=== PATIENT | female | born 1935 | race Caucasian/White ===

== ENCOUNTER → 2016-08-02 | Outpatient (CLI) | payer MEDICARE, OTHER ==
[~2016-08-02] MED LIST: ASPI81TA2 PO; METO25TA6 PO; OMEP40CA52 PO; SIMV20TA6 PO
--- NOTE | 2016-08-04 11:07 | DI ---
INDICATION: ITS.REASON: R05; C90.00; R50.9 PROCEDURE: CHEST 2-VIEWS UPRIGHT (PA \T\ LAT) Encounter: Initial COMPARISON: None FINDINGS: The lungs are hyperinflated with findings suggesting COPD. No consolidative pneumonia or pneumothorax. Blunting of the costophrenic angles could be due to pleural thickening or scarring or trace effusions. Left IJ central venous port catheter in place with the tip in the superior right atrium. Chronic appearing rib deformities. Degenerative change in the shoulders. Impression: Findings of COPD without focal pneumonia or overt congestive failure. .
== END ==
LOC: IMA 18:01
PROVIDERS: ATTEND Internal Medicine
DX: R05 Cough (principal); C90.00 Multiple myeloma not having achieved remission; R50.9 Fever, unspecified; J44.9 Chronic obstructive pulmonary disease, unspecified

== ENCOUNTER 2017-01-17 11:00 | Inpatient (IN) ==
--- OUTSIDE RECORDS SUMMARY | 2017-01-17 13:57 | External Medical Summary ---
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 Care Team Providers Name Role Phone Peace Trevino Provider Role Unavailable Allergies, Adverse Reactions, Alerts Substance Reaction Event Type Sulfa Drugs Info Not Available Non Drug Allergy Pentothal *general Anesthetics* ; sodium Non Drug Allergy Problems Problem Type Condition ICD-9 Code Onset Dates Condition Status Problem Painful respiration 786.52 Inactive Problem Nonspecific abnormal findings on 793.3 Inactive radiological and other examination of biliary tract Problem Malignant neoplasm of corpus 182.0 Inactive uteri, except isthmus Problem Constipation 564.00 Active Problem Dilation of common bile duct 576.8 Active Problem Hematochezia 578.1 Active Problem Unspecified disease of pancreas 577.9 Inactive Problem Other specified disorders of 576.8 Inactive biliary tract Problem Weight loss 783.21 Active Problem Multiple myeloma 203.00 Active Assessment Multiple myeloma 203.00 Active Assessment Hematochezia 578.1 Active Assessment Dilation of common bile duct 576.8 Active Assessment Weight loss 783.21 Active Problem Abdominal pain, unspecified site 789.00 Inactive Assessment Constipation 564.00 Active Problem Personal history of malignant V10.42 Inactive neoplasm of other parts of uterus Medications Medication Code Code Instructions Start End Date Status Dosage System Date Revlimid [facility] 24206-05 not defined 20-00 Gabapentin [facility] 93565-14 100 MG Orally 1 capsule 92- qhs Simvastatin [facility] 50654-31 40 MG Oral 1 tab not defined 55-10 QD Zometa [facility] 79857-68 not defined 90-61 Nulytely with [facility] 98113-20 420 GM Orally as September 29, as directed Flavor Packs directed by [address] [place] [address]-18 20 MG Oral 1 cap not defined 50-01 [place] [address]-13 50-25 MG Oral not defined ochlorothiazide 24-01 1/2 tab am 1/2 tab pm daily Procedures Procedure Coding System Code Date Office Visit, Est Pt., Level 4 CPT-4 91469 September 29, 2014 Vital Signs Date/Time: September 29, 2014 Blood Pressure Systolic 132 mm Hg Weight 107 lbs Height 61 in BMI 20.22 Index Respiratory Rate 16 /min Cardiac Monitoring Heart Rate 80 /min Blood Pressure Diastolic 60 mm Hg Results No Known Results Summary Purpose [employer] Submission
--- OUTSIDE RECORDS SUMMARY | 2017-01-17 13:57 | External Medical Summary ---
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 Care Team Providers Name Role Phone Peace Trevino Provider Role Unavailable Allergies No Known Allergies Problems Problem Type Condition Code Onset Dates Condition Status Problem Other specified disorders of biliary 576.8 Inactive tract Problem Multiple myeloma 203.00 Active Problem Unspecified disease of pancreas 577.9 Inactive Problem Colon polyps 211.3 Active Problem Internal hemorrhoids 455.0 Active Problem Pancreatic cyst 577.2 Active Problem Dilation of common bile duct 576.8 Active Problem Weight loss 783.21 Active Problem Hematochezia 578.1 Active Problem Constipation 564.00 Active Problem Personal history of malignant V10.42 Inactive neoplasm of other parts of uterus Problem Painful respiration 786.52 Inactive Problem Malignant neoplasm of corpus uteri, 182.0 Inactive except isthmus Problem Abdominal pain, unspecified site 789.00 Inactive Problem Nonspecific abnormal findings on 793.3 Inactive radiological and other examination of biliary tract Medications No Known Medications Results No Known Results Summary Purpose [employer] Submission
--- OUTSIDE RECORDS SUMMARY | 2017-01-17 13:57 | External Medical Summary ---
[...] Medications Results No Known Results Summary Purpose [employer] Submission
--- OUTSIDE RECORDS SUMMARY | 2017-01-17 13:57 | External Medical Summary ---
[...] End Date Status Dosage System Date Revlimid [facility] 57307-86 not defined 20-00 Gabapentin [facility] 07086-91 100 MG Orally 1 capsule 92- qhs Simvastatin [facility] 44764-60 40 MG Oral 1 tab not defined 55-10 QD Zometa [facility] 44423-25 not defined 90-61 Nulytely with [facility] 04508-44 420 GM Orally as September 29, as directed Flavor Packs directed by 2015 [place] [address]-00 20 MG Oral 1 cap not defined 50-01 [place] [address]-79 50-25 MG Oral not defined ochlorothiazide 24-01 1/2 tab am 1/2 tab pm daily Procedures Procedure Coding System Code Date Office Visit, Est Pt., Level 4 CPT-4 49014 September 29, 2014 Vital Signs Date/Time: September 29, 2014 Blood Pressure Systolic 132 mm Hg Weight 107 lbs Height 61 in BMI 20.22 Index Respiratory Rate 16 /min Cardiac Monitoring Heart Rate 80 /min Blood Pressure Diastolic 60 mm Hg Results No Known Results Summary Purpose [employer] Submission
--- OUTSIDE RECORDS SUMMARY | 2017-01-17 13:57 | External Medical Summary | Referral Summary ---
:1935 Author Organization [facility] Address [address] [place] [address] Care Team Providers Name Role Phone No PCP, [facility] Primary Care Physician Encounter [facility] [id number] Date(s): 10/14/14 - 10/14/14 [facility] [address] [place] [address]- us Discharge Disposition: 01-Home or Self Care Attending Physician: Sol Arita MD Admitting Physician: Sol Arita MD Vital Signs No data available for this section Problem List No data available for this section Allergies, Adverse Reactions, Alerts No data available for this section Medications No data available for this section Results No data available for this section Immunizations No data available for this section Procedures No data available for this section Social History No data available for this section Assessment and Plan No data available for this section
--- OUTSIDE RECORDS SUMMARY | 2017-01-17 13:57 | External Medical Summary ---
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 Care Team Providers Name Role Phone Peace Trevino Provider Role Unavailable Allergies, Adverse Reactions, Alerts Substance Reaction Event Type Sulfa Drugs Info Not Available Non Drug Allergy Pentothal *general Anesthetics* ; sodium Non Drug Allergy Problems Problem Type Condition Code Onset Dates Condition Status Assessment Pancreatic cyst K86.2 Active Problem Pancreatic cyst K86.2 Active Medications Medication Code Code Instructions Start End Date Status Dosage System Date Gabapentin NDC 57742-02 100 MG Orally 1 capsule 92-01 qhs Omeprazole NDC 66305-10 20 MG Oral 1 cap not defined 50-01 QD Simvastatin NDC 21715-28 40 MG Oral 1 tab not defined 55-10 QD Metoprolol-[place] NDC 09067-23 50-25 MG Oral not defined chlorothiazide 24-01 1/2 tab am 1/2 tab pm daily Procedures Procedure Coding System Code Date Office Visit, Est Pt., Level 3 CPT-4 27556 November 16, 2015 Vital Signs Date/Time: November 16, 2015 Blood Pressure Systolic 128 mm Hg Weight 104 lbs Height 61 in BMI 19.65 Index Respiratory Rate 16 /min Cardiac Monitoring Heart Rate 72 /min Blood Pressure Diastolic 62 mm Hg Results No Known Results Summary Purpose [employer]Works Submission
--- OUTSIDE RECORDS SUMMARY | 2017-01-17 13:57 | External Medical Summary ---
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 Care Team Providers Name Role Phone Peace Trevino Provider Role Unavailable Allergies, Adverse Reactions, Alerts Substance Reaction Event Type Sulfa Drugs Info Not Available Non Drug Allergy Pentothal *general Anesthetics* ; sodium Non Drug Allergy Problems Problem Type Condition ICD-9 Code Onset Dates Condition Status Problem Other specified disorders of 576.8 Inactive biliary tract Problem Multiple myeloma 203.00 Active Problem Unspecified disease of pancreas 577.9 Inactive Problem Colon polyps 211.3 Active Problem Internal hemorrhoids 455.0 Active Problem Pancreatic cyst 577.2 Active Problem Dilation of common bile duct 576.8 Active Problem Weight loss 783.21 Active Problem Hematochezia 578.1 Active Problem Constipation 564.00 Active Assessment Internal hemorrhoids 455.0 Active Assessment Colon polyps 211.3 Active Problem Personal history of malignant V10.42 Inactive neoplasm of other parts of uterus Problem Painful respiration 786.52 Inactive Assessment Pancreatic cyst 577.2 Active Problem Malignant neoplasm of corpus 182.0 Inactive uteri, except isthmus Problem Abdominal pain, unspecified site 789.00 Inactive Problem Nonspecific abnormal findings on 793.3 Inactive radiological and other examination of biliary tract Medications Medication Code Code Instructions Start End Date Status Dosage System Date Revlimid [facility] 09765-90 not defined 20-00 Simvastatin [facility] 34982-10 40 MG Oral 1 tab not defined 55-10 QD Zometa [facility] 00280-98 not defined 90-61 Omeprazole [facility] 20684-58 20 MG Oral 1 cap not defined 50-01 QD Gabapentin [facility] 81385-31 100 MG Orally 1 capsule 92-01 qhs Metoprolol-[place]ard [facility] 62295-97 50-25 MG Oral not defined chlorothiazide 24-01 1/2 tab am 1/2 tab pm daily Procedures Procedure Coding System Code Date Office Visit, Est Pt., Level 3 CPT-4 14731 November 28, 2014 Vital Signs Date/Time: November 28, 2014 Blood Pressure Systolic 128 mm Hg Weight 109 lbs Height 61 in BMI 20.59 Index Respiratory Rate 16 /min Cardiac Monitoring Heart Rate 76 /min Blood Pressure Diastolic 64 mm Hg Results No Known Results Summary Purpose eClinicalWorks Submission
--- OUTSIDE RECORDS SUMMARY | 2017-01-17 13:57 | External Medical Summary ---
[...] uterus Problem Painful respiration 786.52 Inactive Assessment Cyst of pancreas K86.2 Active Problem Malignant neoplasm of corpus uteri, 182.0 Inactive except isthmus Problem Abdominal pain, unspecified site 789.00 Inactive Problem Nonspecific abnormal findings on 793.3 Inactive radiological and other examination of biliary tract Medications No Known Medications Results No Known Results Summary Purpose [facility] Submission
[2017-01-17] MEDS ORDERED: ONDANSETRON 4 MG/2 ML INJECTION IVP PRN (14:11)
[2017-01-17] MEDS ORDERED: METOCLOPRAMIDE 10mg/2ml INJECTION IVP PRN (14:58)
[2017-01-17] MEDS ORDERED: BISACODYL 10 MG SUPPOSITORY RECTALLY PRN (14:59)
--- NOTE | 2017-01-17 15:48 | History & Physical Report ---
<Radha Lui - Last Filed: 01/17/17 15:43> History of Present Illness Date: 01/17/17 Chief complaint: intractable nausea, vomiting and pain HPI: Yvette Delgadillo is an 81-year-old woman with a 4 year history of metastatic multiple myeloma. She was recently hospitalized at [facility], from through 01/17/17 for intractable pain, acute kidney injury, prerenal in nature, neutropenia, bandemia, anemia, hyponatremia, hypokalemia. Her oncologist is Dr. Henry Mcgovern and radiation oncologist, Dr. Moses Romero. Despite various chemotherapy and radiation treatments, she has seen little improvement. She has noticed increased pain in her legs and abdomen. A recent MRI showed progressive sinus tissue, masses, contusion leading to mass effect and impingement on the sciatic foramen, urinary bladder, and right ureter. The medical team recommended hospice,, and initially the patient and family wanted some time to make that decision, but her symptoms became significantly worse since about 10 January, and by the time of her discharge from [facility], she was set up with [facility]. She has been having nausea and vomiting, unable to take anything by mouth. She has had severe abdominal pain, which he describes like a tight band across her upper abdomen and radiating to her back. She hasn't had a bowel movement for about a week. The slps reports that they tried several bowel motivation, medications, and she did have very small results with an enema. However, with her severe nausea and vomiting, she is unable to tolerate MiraLAX or milk of mag. She states she has right upper thigh and groin pain. Her left leg has been markedly edematous for the last 4 weeks or so. She states that this was evaluated for DVT and was negative. She also has a very dry mouth, and is extremely weak. She does not feel like she be able to get up out of bed. She has become dizzy recently. She denies any shortness of breath or chest pain. Yvette denies any dysuria or decreased urine output. She states she has lost weight, though isn't quite sure how much. The slps stated she is starting to have some confusion as well. Her symptoms were still unable to be managed by oral medication, and she was admitted to [facility] for inpatient hospice. Review of Systems Comprehensive ROS: completed and no additional positive findings except those as stated - Constitutional Constitutional: Present: fatigue, weight loss. Absent: chills, fever(s), headache(s) - EENMT Nose: Absent: obstruction Mouth/Throat: Absent: sore throat - Cardiovascular Cardiovascular: Absent: chest pain Vascular: Present: see HPI, unilateral swelling - Respiratory Respiratory: Absent: cough, wheezing - Gastrointestinal Gastrointestinal: Present: as per HPI - Musculoskeletal Musculoskeletal: Present: as per HPI, back pain - Neurological Neurological: Present: confusion, weakness. Absent: numbness, paresthesias - Psychiatric Psychiatric: Absent: anxiety - Endocrine Endocrine: Absent: palpitations - Hematologic/Lymphatic Hematologic/Lymphatic: Present: easy bruising PFSH Metastatic multiple myeloma. Coronary artery disease. Hypertension. Dyslipidemia. History of uterine cancer. Chronic bronchitis. GERD. Osteopenia. Surgical History: Pelvic radiation in 2013. Cholecystectomy. Hysterectomy in 2013 due to cancer Family History: Not applicable to this admission. - Social History Smoking status: Former smoker (currently a nonsmoker) Substance use type: does not use Alcohol intake frequency: does not drink Medications Home Medications Medication Instructions Recorded Confirmed Type Albuterol Sulfate [Proair Hfa] 1 puff INH Q4H PRN 01/17/17 01/17/17 History Dexamethasone 2 mg PO BID 01/17/17 01/17/17 History Furosemide [Lasix] 1 tab PO BID 01/17/17 01/17/17 History Gabapentin 300 mg PO DAILY 01/17/17 01/17/17 History Hydrocodone/Acetaminophen 1 tab PO Q6H 01/17/17 01/17/17 History [Hydrocodon-Acetaminophen 5-325] Metoprolol Succinate (Xl) [Toprol 12.5 mg PO DAILY 01/17/17 01/17/17 History Xl] Morphine Sulfate *Sr* [Ms Contin] 1 tab PO Q12H PRN 01/17/17 01/17/17 History Omeprazole [Prilosec] 1 cap PO ACB 01/17/17 01/17/17 History Ondansetron Tab [Zofran Po] 8 mg PO Q8H PRN 01/17/17 01/17/17 History Simvastatin [Zocor] 20 mg PO HS 01/17/17 01/17/17 History Valacyclovir HCl [Valacyclovir] 500 mg PO DAILY 01/17/17 01/17/17 History Allergies Allergy/AdvReac Type Severity Reaction Status Date / Time Penicillins Allergy Unknown Verified 07/08/14 11:39 Sulfa (Sulfonamide Allergy Unknown Verified 07/08/14 11:39 Antibiotics) Exam Vital Signs: Temperature 97.0 F 01/17/17 14:02 Pulse Rate 83 01/17/17 14:02 Respiratory Rate 18 01/17/17 14:02 Blood Pressure 130/52 01/17/17 14:02 Pulse Oximetry 96 01/17/17 14:02 Height/Weight/BMI: Height 1.57 m Weight 46.2 kg Body Mass Index 18.6 - Constitutional Present: mild distress, thin, cachectic - Routine HEENT Exam Eye: Absent: scleral injection ENT: Present: mucous membranes dry, oropharynx clear - Routine Respiratory Exam Present: CTA bilaterally - Routine Cardiovascular Exam Present: RRR, S1, S2, murmur (2 to 3/6 systolic murmur) - Routine Abdominal Exam Present: soft, tenderness (diffuse tenderness), non tender. Absent: normoactive bowel sounds (hypoactive bowel sounds) - Routine Extremities Exam Present: edema (lymphedema to entire left lower extremity) - Routine Skin Exam Present: dry, pallor, warm - Routine Neurological Exam Present: alert, oriented X3, normal speech - Routine Psychiatric Exam Present: cooperative. Absent: normal affect (tired, flat affect) Assessment and Plan (1) Intractable abdominal pain Current visit: Yes Status: Acute (2) Intractable nausea and vomiting Current visit: Yes Status: Acute Resuscitation Status: Do Not Resuscitate Assessment and Plan: Assessment Intractable nausea, vomiting and abdominal pain secondary to pelvic masses and metastatic multiple myeloma. Constipation, possible obstruction secondary to pelvic masses Confusion/encephalopathy Coronary artery disease Hypertension. Dyslipidemia. History of uterine cancer. GERD. Plan Admit to inpatient status for symptomatic control of abdominal pain, nausea and constipation. This was discussed with the slps in detail. The goal is to convert any IV medication to oral so that she will be able to go home. She had previously been on Decadron 2 mg twice a day, but she has not received this for the last couple of days. Will restart this at 2 mg daily and begin to taper down. She has not been able to tolerate any oral medications for constipation, so we will have suppositories available if needed. The patient, however does not think that suppositories will help significantly. [facility] will be available. Labwork is not indicated. CODE STATUS: DO NOT RESUSCITATE. She plans to go home with her son, who will be her primary caregiver. [facility] were reviewed. -Labs done on 01/14/17 showed Creatinine 1.9, sodium 136, potassium 3.7, the 28th. White count was 2.5, hemoglobin 8.2, platelets 139. -Her weight on 01/15/17 was 106 pounds -Chest x-ray showed scattered bilateral parenchymal and extra parenchymal/ pleural nodules, small left pleural effusion with underlying airspace opacity, multiple bilateral lucencies in the shoulder girdle. -Renal sono on 01/14/17 showed mild right-sided hydronephrosis and hydroureter, debris within urinary bladder. -Left lower extremity venous Doppler on 01/14/17: No evidence of DVT. Discussed with Dr. Padilla. Hospital Course Summary Disclaimer: The visit summary below is not to be considered part of the above Progress Note. Hospital Course: 01/17/17 Assessment Intractable nausea, vomiting and abdominal pain secondary to pelvic masses and metastatic multiple myeloma. Constipation, possible obstruction secondary to pelvic masses Confusion/encephalopathy Coronary artery disease Hypertension. Dyslipidemia. History of uterine cancer. GERD. Plan Admit to inpatient status for symptomatic control of abdominal pain, nausea and constipation. This was discussed with the slps in detail. The goal is to convert any IV medication to oral so that she will be able to go home. She had previously been on Decadron 2 mg twice a day, but she has not received this for the last couple of days. Will restart this at 2 mg daily and begin to taper down. She has not been able to tolerate any oral medications for constipation, so we will have suppositories available if needed. The patient, however does not think that suppositories will help significantly. [facility] will be available. Labwork is not indicated. CODE STATUS: DO NOT RESUSCITATE. She plans to go home with her son, who will be her primary caregiver. [facility] records were reviewed. -Labs done on 01/14/17 showed Creatinine 1.9, sodium 136, potassium 3.7, the 28th. White count was 2.5, hemoglobin 8.2, platelets 139. -Her weight on 01/15/17 was 106 pounds -Chest x-ray showed scattered bilateral parenchymal and extra parenchymal/ pleural nodules, small left pleural effusion with underlying airspace opacity, multiple bilateral lucencies in the shoulder girdle. -Renal sono on 01/14/17 showed mild right-sided hydronephrosis and hydroureter, debris within urinary bladder. -Left lower extremity venous Doppler on 01/14/17: No evidence of DVT. Discussed with Dr. Padilla. <Varsha Padilla - Last Filed: 01/17/17 18:07> History of Present Illness Date: 01/17/17 Exam Vital Signs: Temperature 97.0 F 01/17/17 14:02 Pulse Rate 83 01/17/17 14:02 Respiratory Rate 18 01/17/17 14:02 Blood Pressure 130/52 01/17/17 14:02 Pulse Oximetry 96 01/17/17 14:02 Height/Weight/BMI: Height 1.57 m Weight 46.2 kg Body Mass Index 18.6 Assessment and Plan (1) Intractable abdominal pain Current visit: Yes Status: Acute (2) Intractable nausea and vomiting Current visit: Yes Status: Acute Assessment and Plan: I have independently evaluated and examined this patient. I reviewed the chart, the patient's history, and the [employer]/PA's documented findings as above. We discussed and formulated the assessment and plan as above with additions as below: Patient transferred from [place] for inpatient hospice pending stabilization of symptoms and anticipated home hospice care. Patient was somnolent when seen and her was at the bedside indicating that pain medications make her drowsy. Constipation is the 's primary concern and the patient indicated reluctance to try suppositories. Cachectic female, drowsy, NAD at time of visit Respirations nonlabored but diminished airflow, breath sounds clear posteriorly Low-grade tachycardia, abdomen soft No edema Discussed with [facility] nurse, plans as noted. We'll add MiraLAX 34 g daily to assist in constipation management if able to take oral. Oncology-Dr. Mcgovern. Hospital Course Summary Disclaimer: The visit summary below is not to be considered part of the above Progress Note.
[2017-01-17] MEDS: DEXAMETHASONE 1 MG TABLET PO SCH (16:40)
[2017-01-17] MEDS: HYDROCODONE/APAP 10 MG/325 MG TABLET PO PRN (17:17)
[2017-01-17] MEDS: ONDANSETRON 4 MG/2 ML INJECTION IVP PRN (20:04)
[2017-01-17] MEDS: SENNA + DOCUSATE TABLET PO SCH (20:04)
[2017-01-17] MEDS: LORazepam 0.5 MG TABLET PO SCH (20:05)
[2017-01-18] MEDS: MORPHINE SULFATE 10 MG SYRINGE IV PRN ×3 (03:16→19:20)
[2017-01-18] MEDS: ONDANSETRON 4 MG/2 ML INJECTION IVP PRN ×2 (04:54→12:25)
[2017-01-18] MEDS: HYDROCODONE/APAP 10 MG/325 MG TABLET PO PRN (04:55)
[2017-01-18] MEDS ORDERED: PANTOPRAZOLE 20 MG TABLET PO SCH (07:00)
[2017-01-18] MEDS ORDERED: POLYETHYL GLYCOL 3350 17gm PACKET PO SCH (09:00)
[2017-01-18] MEDS ORDERED: FLEET PHOSPHO - SODA ENEMA 133ml PR PRN (10:00)
[2017-01-18] MEDS: DEXAMETHASONE 4 MG/ML INJECTION IVP SCH (10:26)
[2017-01-18] MEDS: DEXAMETHASONE 1 MG TABLET PO SCH (10:48)
[2017-01-18] MEDS: LORazepam 0.5 MG TABLET PO SCH (10:48)
[2017-01-18] MEDS: SENNA + DOCUSATE TABLET PO SCH (10:49)
[2017-01-18] MEDS: MORPHINE SULFATE 10mg/0.5ml ORAL LIQ PO SCH ×4 (12:22→21:17)
--- NOTE | 2017-01-18 12:35 | Progress Note ---
Subjective: Mrs. Delgadillo has been minimally responsive overnight and is not taking oral medications or any liquids/nutrition. Her is at bedside and indicates that she had a restful night. [facility] nursing requested several changes in medications to accommodate non-oral medication administration. does not believe she's had a bowel movement but did not indicate abdominal distress. She' s had no vomiting. Patient opened her eyes briefly and responded no when asked if she had pain or nausea and drifted back to sleep immediately. Objective Vital signs: Temperature 98.1 F 01/18/17 08:00 Pulse Rate 80 01/18/17 08:00 Respiratory Rate 14 01/18/17 08:00 Blood Pressure 122/47 01/18/17 08:00 Pulse Oximetry 94 01/18/17 08:00 NAD, drowsy Respirations nonlabored, diminished inspiratory effort, clear anteriorly Regular rhythm Abdomen moderately distended, soft, nontender +2 edema LLE, +1 RLE Height/Weight/BMI: Height 1.57 m Weight 47.5 kg Body Mass Index 18.6 Assessment and Plan (1) Intractable abdominal pain Current visit: Yes Status: Acute (2) Intractable nausea and vomiting Current visit: Yes Status: Acute (3) Multiple myeloma Problem details: Metastatic Current visit: Yes Status: Acute Resuscitation Status: Do Not Resuscitate Assessment and Plan: Assessment Intractable nausea, vomiting and abdominal pain secondary to pelvic masses and metastatic multiple myeloma. Constipation, possible obstruction secondary to pelvic masses Confusion/encephalopathy Coronary artery disease Hypertension. Dyslipidemia. History of uterine cancer. GERD. Plan: Appears comfortable at present. Oral medications discontinued. Roxanol initiated at 10 mg every 4 hours and 10 mg every 2 hours as needed. Ativan and Decadron IV with prior dosing. Suppositories/fleets enema if needed for constipation. Discussed with [facility] nurse, , and daughter. Sepsis Assessment - Evaluation Sepsis screening result: No Definite Risk Hospital Course Summary Disclaimer: The visit summary below is not to be considered part of the above Progress Note. Hospital Course: 01/17/17 Assessment Intractable nausea, vomiting and abdominal pain secondary to pelvic masses and metastatic multiple myeloma. Constipation, possible obstruction secondary to pelvic masses Confusion/encephalopathy Coronary artery disease Hypertension. Dyslipidemia. History of uterine cancer. GERD. Plan Admit to inpatient status for symptomatic control of abdominal pain, nausea and constipation. This was discussed with the [facility] r[facility] hospice in detail. The goal is to convert any IV medication to oral so that she will be able to go home. She had previously been on Decadron 2 mg twice a day, but she has not received this for the last couple of days. Will restart this at 2 mg daily and begin to taper down. She has not been able to tolerate any oral medications for constipation, so we will have suppositories available if needed. The patient, however does not think that suppositories will help significantly. [facility] will be available. Labwork is not indicated. CODE STATUS: DO NOT RESUSCITATE. She plans to go home with her son, who will be her primary caregiver. [place] records were reviewed. -Labs done on 01/14/17 showed Creatinine 1.9, sodium 136, potassium 3.7, the 28th. White count was 2.5, hemoglobin 8.2, platelets 139. -Her weight on 01/15/17 was 106 pounds -Chest x-ray showed scattered bilateral parenchymal and extra parenchymal/ pleural nodules, small left pleural effusion with underlying airspace opacity, multiple bilateral lucencies in the shoulder girdle. -Renal sono on 01/14/17 showed mild right-sided hydronephrosis and hydroureter, debris within urinary bladder. -Left lower extremity venous Doppler on 01/14/17: No evidence of DVT. Discussed with Dr. Padilla.
[2017-01-19] MEDS: MORPHINE SULFATE 10mg/0.5ml ORAL LIQ PO SCH ×7 (01:59→21:24)
[2017-01-19] MEDS: DEXAMETHASONE 4 MG/ML INJECTION IVP SCH (09:21)
--- NOTE | 2017-01-19 12:26 | Progress Note ---
Subjective: Mrs. Delgadillo rested quietly through the night per nursing report. She required straight catheterization once late yesterday afternoon but subsequently voided spontaneously once. She received IV Ativan early this morning and one dose of IV morphine yesterday evening. Multiple family members at bedside, has been reports that she rested comfortably overnight. Objective Vital signs: Temperature 98.5 F 01/19/17 08:03 Pulse Rate 97 01/19/17 08:03 Respiratory Rate 16 01/19/17 08:03 Blood Pressure 127/58 01/19/17 08:03 Pulse Oximetry 98 01/19/17 08:03 NAD, nonverbal, opened eyes briefly when abdomen palpated but no other response identified Respirations nonlabored when seen initially, decreased breath sounds throughout ; reassessed later when family conflicted about when necessary dose of morphine at which time patient had labored respirations and furrowed brow Regular rhythm Abdomen soft, mild discomfort on palpation lower abdomen-bladder feels moderately distended Without edema Height/Weight/BMI: Height 1.57 m Weight 44.3 kg Body Mass Index 18.6 Assessment and Plan (1) Intractable abdominal pain Current visit: Yes Status: Acute (2) Intractable nausea and vomiting Current visit: Yes Status: Acute (3) Multiple myeloma Problem details: Metastatic Current visit: Yes Status: Acute Resuscitation Status: Do Not Resuscitate Assessment and Plan: Assessment Intractable nausea, vomiting and abdominal pain secondary to pelvic masses and metastatic multiple myeloma. Constipation, possible obstruction secondary to pelvic masses Confusion/encephalopathy Urinary retention Coronary artery disease Hypertension. Dyslipidemia. History of uterine cancer. GERD. Plan: Discussed indications for when necessary medications with patient's - advised that labored respirations indicate distress and recommended that medications be administered at the time of my second visit. Roxanol dose was not decreased yesterday as previously discussed. Roxanol 10 mg every 4 hours and 10 mg every 2 hours as needed. Ativan IV when necessary/twice a day. Suppositories/fleets enema prn for constipation. Decadron discontinued. Hirsch catheter placed for recurrent urinary retention. Discussed with nursing, , and multiple family members. Sepsis Assessment - Evaluation Sepsis screening result: No Definite Risk Hospital Course Summary Disclaimer: The visit summary below is not to be considered part of the above Progress Note. Hospital Course: 01/17/17 Assessment Intractable nausea, vomiting and abdominal pain secondary to pelvic masses and metastatic multiple myeloma. Constipation, possible obstruction secondary to pelvic masses Confusion/encephalopathy Coronary artery disease Hypertension. Dyslipidemia. History of uterine cancer. GERD. Plan Admit to inpatient status for symptomatic control of abdominal pain, nausea and constipation. This was discussed with the admin assistant in detail. The goal is to convert any IV medication to oral so that she will be able to go home. She had previously been on Decadron 2 mg twice a day, but she has not received this for the last couple of days. Will restart this at 2 mg daily and begin to taper down. She has not been able to tolerate any oral medications for constipation, so we will have suppositories available if needed. The patient, however does not think that suppositories will help significantly. [facility] will be available. Labwork is not indicated. CODE STATUS: DO NOT RESUSCITATE. She plans to go home with her son, who will be her primary caregiver. [place] records were reviewed. -Labs done on 01/14/17 showed Creatinine 1.9, sodium 136, potassium 3.7, the 28th. White count was 2.5, hemoglobin 8.2, platelets 139. -Her weight on 01/15/17 was 106 pounds -Chest x-ray showed scattered bilateral parenchymal and extra parenchymal/ pleural nodules, small left pleural effusion with underlying airspace opacity, multiple bilateral lucencies in the shoulder girdle. -Renal sono on 01/14/17 showed mild right-sided hydronephrosis and hydroureter, debris within urinary bladder. -Left lower extremity venous Doppler on 01/14/17: No evidence of DVT. Discussed with Dr. Padilla. 01/19/17 12:35 Discussed indications for when necessary medications with patient's - advised that labored respirations indicate distress and recommended that medications be administered at the time of my second visit. Roxanol dose was not decreased yesterday as previously discussed. Roxanol 10 mg every 4 hours and 10 mg every 2 hours as needed. Ativan IV when necessary/twice a day. Suppositories/fleets enema prn for constipation. Decadron discontinued. Hirsch catheter placed for recurrent urinary retention. Discussed with nursing, , and multiple family members.
[2017-01-19] MEDS: MORPHINE SULFATE 10 MG SYRINGE IV PRN ×2 (12:34→19:15)
[2017-01-19] MEDS: SALINE FLUSH 10ml SYRINGE IV PRN ×2 (19:15→21:23)
[2017-01-20] MEDS: MORPHINE SULFATE 10mg/0.5ml ORAL LIQ PO SCH ×4 (01:54→14:54)
[2017-01-20] MEDS: MORPHINE SULFATE 10mg/0.5ml ORAL LIQ PO PRN ×4 (04:51→15:01)
[2017-01-20 07:53] VITALS: BP 123/51; PULSE 110; RESP 12; TEMP 98.1; O2SAT 94
[2017-01-20 09:39] VITALS: BMI 18.1
[2017-01-20] MEDS: Hyoscyamine 0.125 MG SL tab SL PRN ×2 (13:00→15:00)
--- NOTE | 2017-01-20 14:56 | Progress Note ---
Subjective: F/U: Comfort care for end stage MM--intractable nausea, vomiting and abdominal pain secondary to pelvic masses and metastatic multiple myeloma. Resting in bed, family at bed side. Respirations shallow and labored. Upper airway secretions noted. No oral intake of foods/liquids. No responsive. Family does feel her pain and symptoms are controlled. Objective Vital signs: Temperature 98.1 F 01/20/17 07:48 Pulse Rate 110 H 01/20/17 07:48 Respiratory Rate 12 01/20/17 07:48 Blood Pressure 123/51 01/20/17 07:48 Pulse Oximetry 94 01/20/17 07:48 Height/Weight/BMI: Height 1.57 m Weight 44.906 kg Body Mass Index 18.1 - Constitutional Present: mild distress, well nourished, well developed, thin, obtunded - Routine HEENT Exam Head: Present: normocephalic, atraumatic ENT: Present: mucous membranes dry - Routine Respiratory Exam Present: accessory muscle use, rhonchi, distant breath sounds, diminished air movement Comments: Shallow, labored respirations - Routine Cardiovascular Exam Present: tachycardia - Routine Abdominal Exam Present: soft, normoactive bowel sounds, non distended, non tender - Routine Extremities Exam Present: no edema, pulses intact - Routine Skin Exam Present: dry, warm - Routine Psychiatric Exam Present: unable to assess (Somnolent/obtunded ) Assessment and Plan (1) Multiple myeloma Problem details: Metastatic Current visit: Yes Status: Acute (2) Intractable abdominal pain Current visit: Yes Status: Acute (3) Intractable nausea and vomiting Current visit: Yes Status: Acute Resuscitation Status: Do Not Resuscitate Assessment and Plan: Assessment Intractable nausea, vomiting and abdominal pain secondary to pelvic masses and metastatic multiple myeloma. Constipation, possible obstruction secondary to pelvic masses Confusion/encephalopathy Urinary retention Coronary artery disease Hypertension. Dyslipidemia. History of uterine cancer. GERD. Plan: Continue with comfort care modalities - with patients decline, hospice elected not to transfer patient out of hospital today. Do feel terminal event near. Lorazepam increased to help comfort. Continue Roxanol. Continue hospice care with [facility]. Emotional support provided to family. Sepsis Assessment - Evaluation Sepsis screening result: No Definite Risk Hospital Course Summary Disclaimer: The visit summary below is not to be considered part of the above Progress Note. Hospital Course: 01/17/17 Assessment Intractable nausea, vomiting and abdominal pain secondary to pelvic masses and metastatic multiple myeloma. Constipation, possible obstruction secondary to pelvic masses Confusion/encephalopathy Coronary artery disease Hypertension. Dyslipidemia. History of uterine cancer. GERD. Plan Admit to inpatient status for symptomatic control of abdominal pain, nausea and constipation. This was discussed with the hospice social worker in detail. The goal is to convert any IV medication to oral so that she will be able to go home. She had previously been on Decadron 2 mg twice a day, but she has not received this for the last couple of days. Will restart this at 2 mg daily and begin to taper down. She has not been able to tolerate any oral medications for constipation, so we will have suppositories available if needed. The patient, however does not think that suppositories will help significantly. [facility] will be available. Labwork is not indicated. CODE STATUS: DO NOT RESUSCITATE. She plans to go home with her son, who will be her primary caregiver. [place] records were reviewed. -Labs done on 01/14/17 showed Creatinine 1.9, sodium 136, potassium 3.7, the 28th. White count was 2.5, hemoglobin 8.2, platelets 139. -Her weight on 01/15/17 was 106 pounds -Chest x-ray showed scattered bilateral parenchymal and extra parenchymal/ pleural nodules, small left pleural effusion with underlying airspace opacity, multiple bilateral lucencies in the shoulder girdle. -Renal sono on 01/14/17 showed mild right-sided hydronephrosis and hydroureter, debris within urinary bladder. -Left lower extremity venous Doppler on 01/14/17: No evidence of DVT. 01/19/17 Discussed indications for when necessary medications with patient's - advised that labored respirations indicate distress and recommended that medications be administered at the time of my second visit. Roxanol dose was not decreased yesterday as previously discussed. Roxanol 10 mg every 4 hours and 10 mg every 2 hours as needed. Ativan IV when necessary/twice a day. Suppositories/fleets enema prn for constipation. Decadron discontinued. Hirsch catheter placed for recurrent urinary retention. Discussed with nursing, , and multiple family members. 01/20/17 Continue with comfort care modalities - with patients decline, hospice elected not to transfer patient out of hospital today. Do feel terminal event near. Lorazepam increased to help comfort. Continue Roxanol. Continue hospice care with [facility]. Emotional support provided to family.
--- NOTE | 2017-01-20 15:26 | Death Note ---
Pronouncement Note - Date and Time of Date of : 01/20/17 Time of : 15:18 - Additional Data Confirmation of : no pulse, no respirations, no heart sounds, pupils fixed and dilated Family: at bedside Additional persons at bedside: other (Hospice nurse ) Attending/PCP notified?: Yes Attending physician: Adalberto Wang MD Was code activated?: No (Patient DNR from admission ) Autopsy requested?: No certified fraud examiner notified?: No
--- NOTE | 2017-01-20 15:31 | Death Note ---
Providers - Provider Primary care physician: Brandin Mills Attending Physician: Adalberto Wang Consults: [facility] Pronouncing clinician: Adalberto Wang Diagnosis - Contributing Factors (1) Multiple myeloma Status: Acute (2) Intractable abdominal pain Status: Acute (3) Intractable nausea and vomiting Status: Acute Summary - Date and Time Date of admission: 01/17/17 Date of : 01/20/17 Time of : 15:18 - Summary Details: Hospital Course: 01/17/17 Assessment Intractable nausea, vomiting and abdominal pain secondary to pelvic masses and metastatic multiple myeloma. Constipation, possible obstruction secondary to pelvic masses Confusion/encephalopathy Coronary artery disease Hypertension. Dyslipidemia. History of uterine cancer. GERD. Plan Admit to inpatient status for symptomatic control of abdominal pain, nausea and constipation. This was discussed with the home hospice rn in detail. The goal is to convert any IV medication to oral so that she will be able to go home. She had previously been on Decadron 2 mg twice a day, but she has not received this for the last couple of days. Will restart this at 2 mg daily and begin to taper down. She has not been able to tolerate any oral medications for constipation, so we will have suppositories available if needed. The patient, however does not think that suppositories will help significantly. [facility] will be available. Lab work is not indicated. CODE STATUS: DO NOT RESUSCITATE. She plans to go home with her son, who will be her primary caregiver. [place] records were reviewed. -Labs done on 01/14/17 showed Creatinine 1.9, sodium 136, potassium 3.7, the 28th. White count was 2.5, hemoglobin 8.2, platelets 139. -Her weight on 01/15/17 was 106 pounds -Chest x-ray showed scattered bilateral parenchymal and extra parenchymal/ pleural nodules, small left pleural effusion with underlying airspace opacity, multiple bilateral lucencies in the shoulder girdle. -Renal sono on 01/14/17 showed mild right-sided hydronephrosis and hydroureter, debris within urinary bladder. -Left lower extremity venous Doppler on 01/14/17: No evidence of DVT. 01/19/17 Discussed indications for when necessary medications with patient's - advised that labored respirations indicate distress and recommended that medications be administered at the time of my second visit. Roxanol dose was not decreased yesterday as previously discussed. Roxanol 10 mg every 4 hours and 10 mg every 2 hours as needed. Ativan IV when necessary/twice a day. Suppositories/fleets enema prn for constipation. Decadron discontinued. Hirsch catheter placed for recurrent urinary retention. Discussed with nursing, , and multiple family members. 01/20/17 Continue with comfort care modalities - with patients decline, hospice elected not to transfer patient out of hospital today. Do feel terminal event near. Lorazepam increased to help comfort. Continue Roxanol. Continue hospice care with [facility]. Emotional support provided to family. Patient passes peacefully at 1518 with family at bedside. No resuscitation performed as patient DNR from admission. was secondary to complications of multiple myeloma. - Additional Data Confirmation of as documented by pronouncing clinician: no pulse, no respirations, no heart sounds, pupils fixed and dilated Family: at bedside Additional persons at bedside: other (Hospice nurse ) Attending/PCP notified?: Yes Attending physician: Adalberto Wang MD Was code activated?: No (DNR at time of admission)
== END 2017-01-20 15:18 | disposition expired | DRG 840 ==
LOC: MED
PROVIDERS: ADMIT Internal Medicine; ATTEND Hospitalist